=== PATIENT | female | born 1960 | race Caucasian/White ===

== ENCOUNTER → 2021-06-27 | Outpatient (CLI) | payer BC | LOC: HEART 5 14:06 | DX: R06.02 Shortness of breath (principal) | CPT/HCPCS: 94060; 94729 ==

== ENCOUNTER → 2021-08-28 | Outpatient (CLI) | payer BC | LOC: EXRD 12:20 | DX: R06.00 Dyspnea, unspecified (principal) | CPT/HCPCS: 71046 ==